=== PATIENT | male | born 1990 | race Caucasian/White ===

== ENCOUNTER 2018-01-19 08:56 | Emergency (ER) | payer OTHER ==
--- NOTE | 2018-01-19 09:17 | ER Report ---
History and Physical Time Seen By MD: 09:05 Hx. of Stated Complaint: PT REPORTS HE WAS DOING DIPS LAST NIGHT, R SHOULDER PAIN TODAY HPI/ROS CHIEF COMPLAINT: Right shoulder pain since last night HISTORY OF PRESENT ILLNESS: 27-year-old male was getting up out of his chair and pushing on the armrest up he felt a pop in the right shoulder. There is instant pain at the time that he went to bed and had heart time sleeping. This morning was much more painful. And stiff. It hurts when he shrugs the right shoulder or leans his head to the left. He has good sensation of his fingers has full range of motion of his fingers, elbow, and wrist. Patient is not complaining of any other symptoms such as fevers aches chills cough cold sore throat or nausea or vomiting or diarrhea. Complains of no back pain. Patient is right-handed. REVIEW OF SYSTEMS: Constitutional: No fever, no chills. Eyes: No discharge. ENT: No sore throat. Cardiovascular: No chest pain, no palpitations. Respiratory: No cough, no shortness of breath. Gastrointestinal: No abdominal pain, no vomiting. Genitourinary: No hematuria. Musculoskeletal: No back pain. Right shoulder pain and points to the superior trapezius and the before meals joint. He has full range of motion of the wrist extremities without any pain or swelling. Skin: No rashes. Neurological: No headache. Allergies: Coded Allergies: No Known Drug Allergies (Unverified , 01/19/18) Home Meds No Active Prescriptions or Reported Meds Reviewed Nurses Notes: Yes Social History of Patient is with 2 children and going to the [facility] and siblings name. He is also working at [employer]. Constitutional Vital Sign - Last 24 Hours 01/19/18 09:01 Temp 97.1 Pulse 90 Resp 16 B/P (MAP) 137/86 Pulse Ox 97 O2 Delivery Room Air Physical Exam General Appearance: The patient is alert, has no immediate need for airway protection and no signs of toxicity. Also help well-nourished and is in a little pain when he rotates his right shoulder. Patient is overweight. Eyes: Pupils equal and round no pallor or injection. ENT, Mouth: Mucous membranes are moist. Respiratory: There are no retractions, lungs are clear to auscultation. Cardiovascular: Regular rate and rhythm. [ ] Gastrointestinal: Abdomen is soft and non tender, no masses, bowel sounds normal. Neurological: Alert and oriented 3. No numbness or tingling to the fingers. Gait and station is appropriate and normal. Skin: Warm and dry, no rashes. Musculoskeletal: Neck is supple non tender. No tenderness at the nuchal ridge of the sternocleidomastoid muscle. Rotation of the head left and right is without pain. Right leaning the head is okay without pain but left thing causes pain at the right superior trapezius. Extremities are nontender, nonswollen and have full range of motion. The exception is the pain has tenderness and a trigger point right superior trapezius, right before meals joint, right spine of the scapula and supraspinatus. Rhomboids are nontender and the versus are nontender. The deltoid is nontender as is the long head of the biceps. Muscle and latissimus are also not involved. DIFFERENTIAL DIAGNOSIS: After history and physical exam differential diagnosis was considered for strain or sprain of the shoulder, acromioclavicular joint separation, traumatic bursitis, rotator cuff, or intra-articular injury with the labrum. Examination suggests strain of the supraspinatus S appear trapezius muscle with a sprain first-degree of the acromioclavicular joint. Medical Decision Making EKG/Imaging Imaging Exam type: SHOULDER MIN 2 VIEWS RIGHT History: right shoulder strain, pain at AC joint Comparison: None Findings: Two views the right shoulder reveal no evidence of acute fracture-dislocation or significant arthritic change. The right AC joint appears intact.. IMPRESSION: 1. No acute osseous articular abnormality of the right shoulder ED Course/Re-evaluation ED Course Patient was evaluated and right shoulder x-ray was done. There is no fractures or dislocations on the x-ray. Patient has a right acromioclavicular joint sprain 1st degree with a strain of the right shoulder muscles. Decision to Disposition Date: Jan 19, 2018 Decision to Disposition Time: 10:21 Depart Departure Latest Vital Signs Vital Signs Date Time Temp Pulse Resp B/P (MAP) Pulse Ox O2 Delivery O2 Flow Rate FiO2 01/19/18 09:01 97.1 90 16 137/86 97 Room Air Impression: Primary Impression: Sprain of right acromioclavicular joint, initial encounter Additional Impression: Strain of right shoulder Condition: Condition Unchanged Disposition: HOME OR SELF-CARE (Z ) New Scripts No Active Prescriptions or Reported Meds Departure Forms: ER Transition Record, Medications Reconciliation, Off Work/ School Form, School or Work Release?: Work Number of days to be released: 2 Patient Portal Information Patient Instructions: Shoulder Sprain (ED) Additional Instructions: Acromial clavicular grade 1 sprain of the right shoulder. You can look at the handout or Google this to see what is going on. Strain of the right superior trapezius and supraspinatus muscles. Ibuprofen 800 mg 3 times a day as well as ice to the area will be helpful. The sling is for comfort only and he completed off or on. No work for 2 days Get this under control. Problem Qualifiers SAMAN ZAMORA MD Jan 19, 2018 09:17
--- NOTE | 2018-01-19 09:46 | RADIOLOGY IMAGING REPORT ---
FACILITY: [facility] [place] PATIENT NAME: Maikel Avalos : 1990 MR: [id number] V: [id number] EXAM DATE: ORDERING PHYSICIAN: SAMAN ZAMORA TECHNOLOGIST: Location: [facility] Patient: Maikel Avalos : 1990 Visit/Account:[id number] Date of Sevice: 01/19/2018 Exam type: SHOULDER MIN 2 VIEWS RIGHT History: right shoulder strain, pain at AC joint Comparison: None Findings: Two views the right shoulder reveal no evidence of acute fracture-dislocation or significant arthriti c change. The right AC joint appears intact.. IMPRESSION: 1. No acute osseous articular abnormality of the right shoulder Report Dictated By: Liza Roe MD at 01/19/2018 9:42 AM Report E-Signed By: Liza Roe MD at 01/19/2018 9:43 AM WSN:[email or web address]
[2018-01-19 10:00] VITALS: BP 141/101
== END 2018-01-19 10:24 | disposition home or self-care (01) ==
LOC: ER 08:57
DX: S43.51XA Sprain of right acromioclavicular joint, initial encounter (principal)
CPT/HCPCS: 73030; 99283; A4565